=== PATIENT | female | born 1990 ===

== ENCOUNTER 2017-11-07 19:20 | Emergency (ER) | payer MEDICAID ==
[2017-11-07 19:30] VITALS: BMI 26.1
[2017-11-07 19:34] VITALS: BP 123/77; PULSE 94; RESP 16; TEMP 98; O2SAT 100
--- NOTE | 2017-11-07 20:32 | ED PDOC ---
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 Patient states her symptoms began late last night and denies taking any medication. Patient reports she is 19 weeks . Denies any recent fever, visual changes, nausea, vomiting, shortness of breath, weakness, neck pain/ stiffness, or numbness. Of note: Patient also reports some mild lower abdominal pain that she's had throughout the , but has been more noticeable this week. She states she 's had 2 prior pregnancies with 1 miscarriage in 2011 and 1 full term vaginal delivery without complications. Patient states she's scheduled for her 20 week ultrasound this . Denies any urinary complaints, vaginal discharge, vaginal bleeding, fever, or chills. Reports LMP was 06/26/17. Patient also notes she is compliant with vitamins and has had prior U/S evaluation for this . PMD: Patient is unable to recall the name, but confirms she has a PMD. Past Medical History Reviewed: Historical Data, Nursing Documentation, Vital Signs Vital Signs: Last Vital Signs Temp 98 F 11/07/17 19:31 Pulse 94 H 11/07/17 19:31 Resp 16 11/07/17 19:31 BP 123/77 11/07/17 19:31 Pulse Ox 100 11/07/17 19:31 - Medical History PMH: No Chronic Diseases - Surgical History Surgical History: No Surg Hx - Family History Family History: States: Unknown Family Hx - Social History Current smoker - smoking cessation education provided: No Alcohol: None Drugs: Denies - Home Medications Home Medications: Ambulatory Orders Medication Instructions Recorded Pnv No.95/Ferrous Fum/Folic AC 1 tab PO DAILY 06/05/16 [ Vitamins Tablet] Ibuprofen [Motrin Tab] 600 mg PO Q6 PRN #40 tab 06/08/16 Acetaminophen [Acetaminophen 8 650 mg PO Q8 PRN #24 tablet.er 11/07/17 Hour] - Allergies Allergies/Adverse Reactions: Allergies Allergy/AdvReac Type Severity Reaction Status Date / Time No Known Allergies Allergy Verified 11/07/17 19:30 Review of Systems ROS Statement: Except As Marked, All Systems Reviewed And Found Negative Constitutional: Negative for: Fever, Sweats Eyes: Negative for: Vision Change Respiratory: Negative for: Shortness of Breath Gastrointestinal: Positive for: Abdominal Pain. Negative for: Nausea, Vomiting Genitourinary Female: Negative for: Dysuria, Frequency, Incontinence, Hematuria , Vaginal Discharge, Vaginal Bleeding Neurological: Positive for: Headache. Negative for: Weakness, Numbness Physical Exam - Reviewed Nursing Documentation Reviewed: Yes Vital Signs Reviewed: Yes - Physical Exam Comments: GENERAL APPEARANCE: Patient is awake, alert, oriented x 3, in no acute distress. Nontoxic appearing. SKIN: Warm, dry; (-) cyanosis. HEAD: (-) scalp swelling or tenderness EYES: (-) conjunctival pallor, (-) scleral icterus. ENMT: Mucous membranes moist. Airway patent: (-) stridor. Pharynx: (-) swelling, (-) erythema, (-) exudate. NECK: Supple (-) lymphadenopathy, (+) bilateral paracervical tenderness, (-) midline tenderness, (+) full ROM. Pain worsens on lateral flexion of neck. CARDIOVASCULAR: Normal rate and rhythm. (-) murmur, (-) gallop. CHEST AND RESPIRATORY: (-) rales, (-) rhonchi, (-) wheezes; breath sounds equal bilaterally. Respirations even and nonlabored, speaking in full sentences. ABDOMEN: Soft. (-) reproducible abdominal tenderness (+) gravid (-) distention. (-) CVA tenderness. EXTREMITIES: (-) deformity, (-) edema. NEURO: Mental status as above. Cranial nerves grossly intact; strength symmetric. Pupils equal & reactive. EOMI and painless. (-) facial asymmetry. Tongue and uvula midline. Strength 5/5 in all extremities. No gross sensory deficits. - Laboratory Results Urine POC: Positive Urine dip results: Positive for: Ketones (trace). Negative for: Leukocyte Esterase, Blood, Nitrate, Glucose, Bilirubin, Protein - ECG O2 Sat by Pulse Oximetry: 100 (RA) Pulse Ox Interpretation: Normal Medical Decision Making Medical Decision Makin:20 Initial Impression: Headache, muscle spasm of neck, 2nd trimester . --ED Urine dipstick --Flexeril 10mg PO (Patient has a ride home with ) --Tylenol 975mg PO --Reevaluation 2100 Udip reviewed and grossly unremarkable. On re-evaluation, patient reports improvement of symptoms and resolution of abdominal pain, denies vaginal bleeding, weakness, numbness, visual changes, vomiting/nausea. On exam, patient remains AAOx3, in no acute distress. On exam, neck is supple, lungs CTA, cardiac RRR, abdomen is soft and non-tender, neuro exam shows no focal findings. Neck with improved ROM. VSS, stable for discharge. Diagnostic results d/w the patient in great detail. Dx of headache, muscle spasm of neck, second trimester of d/w the patient. Based on history, exam and diagnostic results plan will be for discharge and outpatient follow up. Advised to follow up with primary care physician/OBGYN as scheduled in 1-2 days without fail. Advised to take medication as prescribed. Return to the emergency room at any time for any new or worsening symptoms. Patient states she fully agrees with and understands discharge instructions. States that she agrees with the plan and disposition. Verbalized and repeated discharge instructions and plan. I have given the patient opportunity to ask any additional questions. Scribe Attestation: Documented by Bala Wheeler, acting as a scribe for GURWINDER Randall. Provider Scribe Attestation: All medical record entries made by the Scribe were at my direction and personally dictated by me. I have reviewed the chart and agree that the record accurately reflects my personal performance of the history, physical exam, medical decision making, and the department course for this patient. I have also personally directed, reviewed, and agree with the discharge instructions and disposition. Disposition - Clinical Impression Clinical Impression: Neck pain, Neck muscle spasm, Headache, Abdominal pain affecting - Patient ED Disposition Is Patient to be Admitted: No Counseled Patient/Family Regarding: Diagnosis, Need For Followup, Rx Given - Disposition Disposition: Routine/Home Disposition Time: 21:00 Condition: STABLE Additional Instructions: FOLLOW UP PLANNED FOR U/S MONDAY AND FURTHER OBGYN EVALUATION. Prescriptions: Acetaminophen [Acetaminophen 8 Hour] 650 mg PO Q8 PRN #24 tablet.er PRN Reason: Pain, Moderate (4-7) Instructions: Tension Headache, Muscle Spasms (DC), Generalized Neck Pain, - The Fifth Month Forms: [facility] [employer] [facility] (Divehi) Print Language: MALAGASY - POA Present On Arrival: None
== END 2017-11-07 21:15 | disposition home or self-care (01) ==
LOC: H.ER 19:20
DX: M54.2 Cervicalgia (principal); R51 Headache; O26.892 Other specified pregnancy related conditions, second trimester; Z3A.20 20 weeks gestation of pregnancy

== ENCOUNTER 2018-03-31 02:13 | Inpatient (IN) | payer MEDICAID ==
[2018-03-31 02:44] VITALS: BMI 28.8
[2018-03-31] MEDS ORDERED: Penicillin G Potassium 5 MU in Sodium Chloride 0.9% 50 ML IVPB ONE (02:49)
[2018-03-31] MEDS ORDERED: Lactated Ringer's 1,000 ML IV ONE (02:49)
[2018-03-31] MEDS ORDERED: Lactated Ringer's 1,000 ML IV SCH (03:00)
[2018-03-31] MEDS ORDERED: Penicillin G 5 Million Unit Vial IVPB ONE (03:05)
[2018-03-31 03:17] LABS: HEMOGLOBIN 11.6 g/dL (12.0-16.0); MEAN CELL VOLUME 92.5 fl (81.0-99.0); MEAN CORPUSCULAR HEMOGLOBIN 31.5 pg (27.0-31.0); MEAN CORPUSCULAR HGB CONC 34.1 g/dL (33.0-37.0); RBC 3.69 Mil/uL (3.80-5.20); RED CELL DISTRIBUTION WIDTH 13.6 % (11.5-14.5); WHITE BLOOD COUNT 9.1 K/uL (4.8-10.8)
[2018-03-31] MEDS ORDERED: Lidocaine 2% PF (10 ml) Amp ONE (03:59)
[2018-03-31] MEDS ORDERED: Oxytocin 30 UNIT 30 UNITS/500 ML BAG IV ONE ×2 (04:00→04:25)
[2018-03-31] MEDS ORDERED: Oxycodone/Acetaminophen 5/325 mg Tab PO PRN ×2 (04:25→07:43)
[2018-03-31] MEDS ORDERED: OXYTOCIN/0.9 % NS 20 UNIT/1,000 ML BAG IV ONE (04:25)
[2018-03-31] MEDS ORDERED: Benzocaine/Menthol SPRAY TOP PRN ×2 (04:25→07:43)
[2018-03-31 06:51] VITALS: O2SAT 100
--- NOTE | 2018-03-31 12:16 | OBHP ---
Datetime: 03/31/2018 02:45 Presentation-Admit: Vertex FHR - Baseline A Provider: 125 Contraction Comments Provider: irregular Gestation - Est Wks by US: 39.5 IP Hx Assessment: The History has been Reviewed and is Current Vital Signs Provider: Reviewed; Within Normal Limits IP Chief Complaint: Uterine contractions; Vaginal bleeding; Maternal discomfort NICHD Variability Prov Fetus A: Moderate 6-25bpm NICHD Accel Fetus A IP Provider: [id number] FHR Category Provider Fetus A: Category I NICHD Decel Fetus A IP Provider: None Dilatation, Provider: Bruce-8 Datetime: 03/31/2018 02:30 IP Adm Impression: Term, intrauterine ; No Active Labor; Intact Membranes IP Admit Plan: Admit to unit Admit Comment, IP Provider: 27 y/o female IUP 39.5 wk GA presents to [facility] w/ c/o painful con tractions, vaginal bleeding and VFL. She denies n/v/dizziness/headache. GBS+ PNC:[facility] PMH: none PSurgical: none Famhx: none Socialhx:denies tobacco, etoh, recreational drug use Home Rx: vitamins and iron supplements Allergies: NKDA O: Afebrile General: patient is very uncomfortable Heart: RRR Chest: CTA B/L Abd: Soft,NT ,Bs- present FHR: , moderate variability, no decelerations [place]: irregular contractions SVE: exam by Nurse Mirela, 7-8cm dilated Assessment: 27 y/o female IUP at 39.5 wk GA w/ c/o painful contractions GBS+ Plan: Admit patient to L_D 1L LR bolus 1L LR 125mLs/hr CBC, type and screen ordered Monitor FHR Pencillin G. 5 mu and 2.5 mu ordered Case discussed w/ attending Georgiana Prabhakar PGY-I OB Hospitalistnote: Pt seen and Agree with note. observe labor progress IV Abx for GBS MAHNDO Pelvic Type - PN: Not Done Extremities - PN: Normal Abdomen - PN: Normal Back - PN: Normal Breast - PN: Normal Lungs - PN: Not Done Heart - PN: Normal Thyroid - PN: Normal Neurologic - PN: Normal HEENT - PN: Normal General - PN: Normal Membranes, Provider: Intact Genitourinary Exam: Normal DTRs - PN: Not Done
--- NOTE | 2018-03-31 12:20 | OBADHP ---
Datetime: 03/31/2018 02:45 Presentation-Admit: Vertex FHR - Baseline A Provider: 125 Contraction Comments Provider: irregular Gestation - Est Wks by US: 39.5 Vital Signs Provider: Reviewed; Within Normal Limits IP Chief Complaint: Uterine contractions; Vaginal bleeding; Maternal discomfort NICHD Variability Prov Fetus A: Moderate 6-25bpm NICHD Accel Fetus A IP Provider: [id number] FHR Category Provider Fetus A: Category I NICHD Decel Fetus A IP Provider: None Dilatation, Provider: 7-8 Datetime: 03/31/2018 02:30 Admit Comment, IP Provider: 27 y/o female IUP 39.5 wk GA presents to [facility] w/ c/o painful con tractions, vaginal bleeding and VFL. She denies n/v/dizziness/headache. GBS+ PNC:[facility] PMH: none PSurgical: none Famhx: none Socialhx:denies tobacco, etoh, recreational drug use Home Rx: vitamins and iron supplements Allergies: NKDA O: Afebrile General: patient is very uncomfortable Heart: RRR Chest: CTA B/L Abd: Soft,NT ,Bs- present FHR: , moderate variability, no decelerations [place]: irregular contractions SVE: exam by Nurse Mirela, 7-8cm dilated Assessment: 27 y/o female IUP at 39.5 wk GA w/ c/o painful contractions GBS+ Plan: Admit patient to L_D 1L LR bolus 1L LR 125mLs/hr CBC, type and screen ordered Monitor FHR Pencillin G. 5 mu and 2.5 mu ordered Case discussed w/ attending Georgiana Prabhakar PGY-I OB Hospitalistnote: Pt seen and Agree with note. observe labor progress IV Abx for GBS MAHNDO Pelvic Type - PN: Not Done Extremities - PN: Normal Abdomen - PN: Normal Back - PN: Normal Breast - PN: Normal Lungs - PN: Not Done Heart - PN: Normal Thyroid - PN: Normal Neurologic - PN: Normal HEENT - PN: Normal General - PN: Normal Membranes, Provider: Intact IP Hx Assessment: The History has been Reviewed and is Current Genitourinary Exam: Normal DTRs - PN: Not Done IP Adm Impression: Term, intrauterine ; No Active Labor; Intact Membranes IP Admit Plan: Admit to unit
[2018-03-31 16:46] LABS: BASO % 0.2 % (0.0-2.0); EOS % 0.1 % (0.0-4.0); HEMOGLOBIN 10.6 g/dL (12.0-16.0); LYMPH # 1.6 K/uL (1.0-4.3); LYMPH % 16.3 % (20.0-40.0); MEAN CELL VOLUME 93.9 fl (81.0-99.0); MEAN CORPUSCULAR HEMOGLOBIN 31.3 pg (27.0-31.0); MEAN CORPUSCULAR HGB CONC 33.4 g/dL (33.0-37.0); MEAN PLATELET VOLUME 8.1 fl (7.2-11.7); MONO # 0.7 K/uL (0.0-0.8); MONO % 6.8 % (0.0-10.0); NEUT # 7.4 K/uL (1.8-7.0); NEUT % 76.6 % (50.0-75.0); RBC 3.39 Mil/uL (3.80-5.20); RED CELL DISTRIBUTION WIDTH 13.5 % (11.5-14.5); WHITE BLOOD COUNT 9.6 K/uL (4.8-10.8)
--- NOTE | 2018-04-01 19:32 | OBPPN ---
Datetime: 04/01/2018 13:00 PP Pain Prov: Within normal limits PP Nausea Prov: Denies PP Flatus Prov: Yes PP BM Prov: No PP Breasts Prov: Normal PP Heart Prov: Normal PP Lungs Prov: Normal PP Abdomen/Uterus Prov: Normal PP Lochia Prov: Normal PP Vulva/Perineum Prov: Normal PP CVA Tenderness Prov: Normal PP Extremities Prov: Normal PP C/S Incision Prov: Not Applicable PP Progress Prov: Not Applicable PP Impression Prov: Normal progression PP Plan Prov: Continue present management PP Progress Note Prov: S: Patient seen and examined this morning. NAD, normal progression , s/p SNVD on 03/31/18. Ambulating, tolerating PO intake, voiding freely, pain is well controlled, joanie ast feeding the baby, voiding freely. No BM. Denies pain or bleeding. O: VS: stable GEN: NAD Cardio: s1s2, no M/G/R Resp: clear breath sounds b/l Abdomen: BS+, NT, Uterus is firm and at the level of the umbilicus. EXT: No edema, calves nontender NEURO/PSYCHI: AAOx3, no grossly focal deficit, preserved affect and mood. A/P: 27 y/o F. , s/p SNVD, PPD 1, healthy female NB - C/w Breast feeding, ambulation and PO intake - Normal PP progression - C/w current management - pain managment --- JPATEL, PGY2 IP PP Procedures: None Vital Signs Provider PP: Reviewed
[2018-04-02 19:10] VITALS: BP 112/64; PULSE 78; RESP 20; TEMP 98.4
--- NOTE | 2018-04-02 19:19 | OBDCSUM ---
Datetime: 04/02/2018 08:29 Discharged to, Provider: Home Follow up at, Provider: OB Disch Instr Activity: Normal activity Disch Instr Diet: Regular Discharge Instructions, Provider: Routine instructions given Discharge Diagnosis, Provider: Term Delivered Discharge Time: 04/02/2018 10:49 Follow up in weeks, Provider: 4-6 weeks Disch Referrals: None Contraception discussed, Prov: Yes Disch Activity Restrictions: Nothing in vagina - [place], tampons, douche Discharge Comment, Provider: DOA:03/31/2018 EGA: 39.5 Dx: intrauterine 27 y/o F presented at 39.5 wk GA w/ painful contractions L_D summary: Uncomplicated spontaneous vaginal delivery of a viable female infant. DOL:03/31/18 4:06 :9/9 Weight: 3335 No complications during PP. Brian guillen. Patient w/o difficulties. Rubella immune Blood type A+ CBC PP 10.6/31.8 Discharge date: 04/02/18 Discharge instructions: -encourage -ibuprofen 600 mg for pain -Senokot 17.2 mg for constipation -ambulate as tolerated -patient advised to follow up w/ OB in 4-6 weeks Georgiana Prabhakar PGY I Contraception after Delivery: IUD
--- NOTE | 2018-04-02 19:19 | OBPPN ---
Datetime: 04/02/2018 07:30 PP Pain Prov: Within normal limits PP Nausea Prov: Denies PP Flatus Prov: Yes PP BM Prov: No PP Breasts Prov: Normal PP Heart Prov: Normal PP Lungs Prov: Normal PP Abdomen/Uterus Prov: Normal PP Lochia Prov: Normal PP Vulva/Perineum Prov: Not Done PP CVA Tenderness Prov: Normal PP Extremities Prov: Normal PP C/S Incision Prov: Not Applicable PP Progress Prov: Normal PP Impression Prov: Normal progression PP Plan Prov: Discharge PP Progress Note Prov: Patient seen and examined at the bedside in morning. Reports passing gas, but no stool. Tolerating PO diet.Lochia like menses. Patient is without difficulties. She has no complaints this AM. VSS, Afebrile Gen: NAD Lungs: CTA bilaterally CVS: RRR, S1, S2 WNL, no murmurs. Abd: ND, +BS, appropriated tenderness, fundus firm at umbilical level. Ext: No edema, negative calf tenderness. Neuro/psych: AAOx3 A/P: 27 y/o female at 39.5 WK GA PPD2 -Encourage ambulation -Encourage -Diet as tolerated -Ibuprofen 600 mg for pain mgmt -Senekot 17.2 mg PO for constipation -anticipated discharge later today Georgiana Prabhakar PGY-I [employer] ID [id number] ob attending addendum: pt seen _ examined by me. agree w/ above assessment and plan. Vital Signs Provider PP: Reviewed; Within Normal Limits
== END 2018-04-02 12:58 | disposition home or self-care (01) | DRG 373 ==
LOC: H.EROB2 02:13 → H.L&D 02:49 → H.OB/GYN 06:15
PROVIDERS: ADMIT Obstetrics & Gynecology; ATTEND Obstetrics & Gynecology
PROC: 10E0XZZ Delivery of Products of Conception, External Approach (ICD-10-PCS; principal; 2018-03-31)
PROC: 4A1HXCZ Monitoring of Products of Conception, Cardiac Rate, External Approach (ICD-10-PCS; 2018-03-31)
DX: O99.824 Streptococcus B carrier state complicating childbirth (principal); K59.00 Constipation, unspecified; Z37.0 Single live birth; Z3A.39 39 weeks gestation of pregnancy